=== PATIENT | female | born 1980 | race Asian ===

== ENCOUNTER 2023-10-28 10:03 | Outpatient (CLI) | payer OTHER ==
--- NOTE | 2023-10-28 12:29 | XRAY Report ---
PROCEDURE: Chest 2 View X-Ray INDICATIONS: COUGH, UNSPECIFIED TECHNIQUE: 2 views of the chest were acquired. COMPARISON: None. FINDINGS: Surgical changes and devices: None. Lungs and pleura: No pleural effusions or pneumothorax. Lungs are clear. Mediastinum: Mediastinal contours appear normal. Heart size is normal. Bones and chest wall: No suspicious bony lesions. Overlying soft tissues appear unremarkable. IMPRESSION: No acute cardiopulmonary process. Reviewed by: Pako Mir MD on 10/28/2023 12:27 PM PST Approved by: Pako Mir MD on 10/28/2023 12:[address] [facility] Station ID: [id number]
== END 2023-10-28 10:04 | disposition home or self-care (01) ==
LOC: DI.S 10:03
PROVIDERS: ATTEND Physician Assistant
DX: R05.9 Cough, unspecified (principal)